=== PATIENT | female | born 1960 | race African-American/Black ===

== ENCOUNTER 2021-09-23 16:44 | Emergency (ER) | payer BC, SELFPAY ==
[2021-09-23 16:58] VITALS: BP 133/63; PULSE 86; RESP 16; TEMP 37.6; O2SAT 98
--- NOTE | 2021-09-23 17:47 | ED.DENTAL ---
HPI - Dental/Oral General Chief complaint: Dental/Oral Stated complaint: facial swelling Time Seen by Provider: 09/23/21 17:28 Source: patient Mode of arrival: ambulatory Limitations: no limitations History of Present Illness HPI Narrative: Pt is a 61 y/o female, presents to ED via POV with right upper dental pain for the past month that has waxed and waned in severity, until two days ago when pain increased and became more constant. She denies associated fevers or chills and she has no facial swelling. She does not have dental insurance and therefore, has not been to a dentist. Her pain increases with chewing and cold substances. She denies modifying factors. MD Complaint: tooth pain Teeth map: 1. gross decay, percussion tenderness, no fluctuant abscess Severity scale (1-10): 8 Relieving factors: nothing Exacerbating factors: chewing and cold Context: history of dental caries and poor dental care Associated symptoms: gum swelling Treatment prior to arrival: none Related Data Allergies Allergy/AdvReac Type Severity Reaction Status Date / Time ciprofloxacin Allergy Hives Verified 09/23/21 17:37 Review of Systems Review of Systems: refer to HPI All systems reviewed & are unremarkable except as noted in HPI and below Constitutional: Constitutional: Reports no additional constitutional complaints ENT: Reports as per HPI and Reports dental pain Exam Const: General: cooperative, alert, awake and uncomfortable Nutritional Appearance: average body habitus Orientation/consciousness: oriented to person, oriented to place, oriented to time and patient oriented x3 Limitations: no limitations HENMT: Head: normal to inspection and normocephalic Ears: hearing grossly normal bilaterally, TM normal on the right and TM normal on the left General nose exam: Normal external nose present and Normal nares present Face and sinus: normal facial exam, sinuses nontender and face symmetric Mouth: Yes Normal oral and palatal mucosa present, Yes lip normal and Yes oropharynx normal Teeth and gingiva: abnormal tooth and associated gingiva Teeth image: 1. gross decay Throat: posterior oropharynx normal, tonsils normal and uvula midline Eyes: Visual Fortune: normal visual fortune by confrontation Alignment and Position: alignment normal Pupils: Equal, round and reactive pupils present EOM: EOMs intact bilaterally Direct Ophthalmoscopy: normal light reflex, no photophobia and no papilledema Neck: Neck: normal visual inspection, full ROM and no lymphadenopathy Resp: Effort & Inspection: normal respiratory effort and able to speak in complete sentences Auscultation: clear to auscultation bilaterally Cardio: Jugular venous distension: no JVD Palpation: normal PMI Rate: regular rate Rhythm: regular rhythm Heart sounds: S1 normal heart sound present and S2 normal heart sound present Peripheral pulses: Peripheral pulses 2+ throughout GI: Inspection: normal to inspection Auscultation: normal bowel sounds Rectal Exam: deferred Course Course Emergency Course: plan: to treat with oral abx, oral pain medication (small quantity) and dental FU stressed. She notes she plans to FU with [facility] dental school in [facility]. SHe is advised [facility] is also a good option for dental care without insurance or when [place] medicaid is her primary insurer. She will return to the ER if facial swelling or fevers arise. Vital Signs Vital signs: Vital Signs Temperature 37.6 C H 09/23/21 16:58 Pulse Rate 86 09/23/21 16:58 Respiratory Rate 16 09/23/21 16:58 Blood Pressure 133/63 09/23/21 16:58 Pulse Oximetry 98 09/23/21 16:58 Temperature 37.6 C H 09/23/21 16:58 Pulse Rate 86 09/23/21 16:58 Respiratory Rate 16 09/23/21 16:58 Blood Pressure 133/63 09/23/21 16:58 Pulse Oximetry 98 09/23/21 16:58 MDM - Dental/Oral MDM Narrative Medical decision making narrative: dental caries, dental abscess, gingivitis Differential Diagnosi
[2021-09-23] MEDS: PENICILLIN V POTASSIUM 250 MG TABLET 500 MG PO (17:53)
[2021-09-23] MEDS: ACETAMINOPHEN/CODEINE (*CRX) 300/30 MG TABLET 1 TAB PO (17:53)
== END 2021-09-23 18:28 | disposition home or self-care (01) ==
LOC: ANHED 18:23
PROVIDERS: Emergency Provider Nurse Practitioner Family
DX: K02.9 Dental caries, unspecified (principal)
CPT/HCPCS: 99283; A9270